=== PATIENT | male | born 2000 | race Caucasian/White ===

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

== ENCOUNTER → 2022-03-29 12:34 | Outpatient (BNVA) | payer OTHER, SELFPAY | PROVIDERS: PCP Nurse Practitioner; Visit Provider Counselor Mental Health | DX: F41.1 Generalized anxiety disorder (principal) | CPT/HCPCS: 90834 ==

== ENCOUNTER 2022-04-19 16:48 | Inpatient (IN) | payer MEDICAID, SELFPAY ==
[2022-04-19 16:58] VITALS: BP 100/55; PULSE 82; RESP 18; TEMP 36.6; O2SAT 97; BMI 18.6
--- NOTE | 2022-04-19 17:00 | ED_ITS ---
HPI - General Adult General: Chief complaint: Psychiatric Symptoms Stated complaint: Psych eval; depression; SI Time Seen by Provider: 04/19/22 16:59 History of Present Illness: HPI: [21]yo patient w/ hx of depression prsenting for severe depression. Patient denies any suicidal ideation but tells me that he has been on medicine compliantly and he is here because his girlfriend gave him an ultimatum to come to the emergency room to get help for his depression. on arrival, the patient is AAOx3 and cooperative with my evaluation. No focal complaints of chest pain, shortness of breath, palpitations, N/V, focal GI/ complaints. Currently denies SI/HI. No complaints of hallucinations. Onset: acute on chronic Duration: ongoing Location: home Severity: severe Associated symptoms: Deny chest pain, dyspnea, nausea, rash, palpitations or vomiting Review of Systems Const: Denies: fever(s) or chills Eyes: Denies: change in vision ENMT: Denies: mouth pain Card: Denies: chest pain or palpitations Resp: Denies: dyspnea or non-productive cough GI: Denies: abdominal pain, nausea, vomiting or diarrhea : Denies: dysuria Musc: Denies: extremity pain Skin/Breast: Denies: rash or new lesions Neuro: Denies: weakness in extremities Psych: Reports: depression Cedrick/Lymph: Denies: easy bruising [facility] ED PFSH: Medical History (Updated 04/19/22 @ 16:59 by Yas Ruiz MD) Psychiatric care Social History Smoking and tobacco status: current every day smoker Physical Exam Const: COMMON NORMALS: alert HENMT: COMMON NORMALS: atraumatic HEAD & SCALP: atraumatic MOUTH: moist mucous membranes not abnormal Eye: COMMON NORMALS: EOMs intact bilaterally and conjunctivae normal CONJUNCTIVA: Yes conjunctivae normal Neck/C-Spine: COMMON NORMALS: full ROM and supple Resp: COMMON NORMALS: normal respiratory effort and clear to auscultation bilaterally AUSCULTATION: clear to auscultation bilaterally Cardio: COMMON NORMALS: regular rate RATE: regular rate GI: COMMON NORMALS: Soft to palpation and non-tender PALPATION: Yes Soft to palpation Extremity: COMMON NORMALS: full ROM Neuro: SENSORIUM/ORIENTATION: Yes alert MOTOR EXAM: No Abnormal motor strength present and Other motor observations present (no focal motor deficits) Psych: COMMON NORMALS: speech normal SPEECH: Yes normal speech MOOD & AFFECT: Yes depressed mood Course Vital Signs: Vital signs: Vital Signs Temperature 98 F 04/19/22 16:58 Pulse Rate 82 04/19/22 16:58 Respiratory Rate 18 04/19/22 16:58 Blood Pressure 100/55 04/19/22 16:58 Pulse Oximetry 97 04/19/22 16:58 MDM - General Adult Medical Decision Making [21]yo patient w/ hx of depression in fluoxetine 10mg daily presenting for worsening depression. No SI. HDS, exam within normal limit Thoughts are linear and organized, and the patient has no AH/VH, or HI. Clinically the patient displays no overt toxidrome; they are well appearing, with low suspicion for toxic ingestion given history and exam. Symptoms unlikely 2/2 anemia, hypothyroidism, infection, or ICH. Workup: CBC, CMP, Lipase, salicylate/tylenol, UDS Lab findings: wnl, +marijuana in the urine [6:30pm] On reassessment, labs and workup wnl. Patient is hemodynamically stable with no acute medical complaints. Case discussed with psychiatric provider Dr. Chambers at [facility] psych inpatient with recommendation for admission Disposition: Psych Lab Data : 04/19/22 17:44 04/19/22 17:44 Laboratory Results WBC 7.9 10^3/uL (4.5-13.0) 04/19/22 17:44 RBC 4.76 10^6/uL (4.1-5.3) 04/19/22 17:44 Hgb 13.9 g/dL (11.7-16.6) 04/19/22 17:44 Hct 41.2 % (42.0-52.0) L 04/19/22 17:44 MCV 86.6 fl (80-94) 04/19/22 17:44 MCH 29.2 pg (28.0-34.0) 04/19/22 17:44 MCHC 33.7 g/dL (30.0-36.0) 04/19/22 17:44 RDW 13.2 % (12.1-15.1) 04/19/22 17:44 Plt Count 176 10^3/cmm (130-400) 04/19/22 17:44 MPV 10.6 fL (7.4-10.4) H 04/19/22 17:44 Neut % (Auto) 50.0 % 04/19/22 17:44 Lymph % (Auto) 29.2 % 04/19/22 17:44 [place] % (Auto) 9.0 % 04/19/22 17:44 Eos % (Auto) 11.1 % 04/19/22 17:44 Baso % (Auto) 0.4 % 04/19/22 17:44 Neut # (Auto) 3.94 10^3/uL (1.8-8.0) 04/19/22 17:44 Lymph # (Auto) 2.3 10^3/uL (1.5-6.5) 04/19/22 17:44 [place] # (Auto) 0.7 10^3/uL (0.2-0.9) 04/19/22 17:44 Eos # (Auto) 0.9 10^3/uL (0.0-0.8) H 04/19/22 17:44 Baso # (Auto) 0.0 10^3/uL (0.0-0.1) 04/19/22 17:44 Nucleated RBC % (auto) 0 % 04/19/22 17:44 Nucleated RBCs # 0.0 /100WBC 04/19/22 17:44 Sodium 139 mmol/L (136-145) 04/19/22 17:44 Potassium 4.1 mmol/L (3.5-5.1) 04/19/22 17:44 Chloride 101 mmol/L (98-107) 04/19/22 17:44 Carbon Dioxide 30 mmol/L (22-29) H 04/19/22 17:44 Anion Gap 12.1 (5-19) 04/19/22 17:44 BUN 11 mg/dL (6-20) 04/19/22 17:44 Creatinine 0.7 mg/dL (0.7-1.2) 04/19/22 17:44 GFR Calculation 145.3 mL/min (90-130) H 04/19/22 17:44 Glucose 108 mg/dL (65-115) 04/19/22 17:44 Calculated Osmolality 288 mOsm/kg (285-295) 04/19/22 17:44 Calcium 9.4 mg/dL (8.5-10.5) 04/19/22 17:44 Total Bilirubin 0.5 mg/dL (0.15-1.2) 04/19/22 17:44 AST 19 U/L (0-40) 04/19/22 17:44 ALT 14 U/L (0-41) 04/19/22 17:44 Alkaline Phosphatase 82 IU/L (40-130) 04/19/22 17:44 Total Protein 7.6 g/dL (6.6-8.7) 04/19/22 17:44 Albumin 4.7 g/dL (3.5-5.2) 04/19/22 17:44 Globulin 2.9 g/dL (1.3-4.6) 04/19/22 17:44 Salicylates < 0.3 mg/dL (3-10) L 04/19/22 17:44 Urine Opiates Screen Negative ng/mL (Negative) 04/19/22 17:44 Acetaminophen < 5.0 ug/mL (10-30) L 04/19/22 17:44 Ur Barbiturates Screen Negative ng/mL (Negative) 04/19/22 17:44 Ur Phencyclidine Scrn Negative ng/mL (Negative) 04/19/22 17:44 Ur Amphetamines Screen Negative ng/mL (Negative) 04/19/22 17:44 U Benzodiazepines Scrn Negative ng/mL (Negative) 04/19/22 17:44 Urine Cocaine Screen Negative ng/mL (Negative) 04/19/22 17:44 U Marijuana (THC) Screen Positive ng/mL (Negative) H 04/19/22 17:44 Ethyl Alcohol < 10 mg/dL (0-10) 04/19/22 17:44 Discharge Plan Discharge Patient Disposition: Admitted As Inpatient Clinical Impression: Depression, Depression with suicidal ideation Condition: Stable Coding Level of Care Code ED Outbound Sales Professional for Alondra Fwd Exam Comprehensive
[2022-04-19 17:56] LABS: Basophils % 0.4 %; Eosinophils # 0.9 10^3/uL (0.0-0.8); Eosinophils % 11.1 %; Hematocrit 41.2 % (42.0-52.0); Hemoglobin 13.9 g/dL (11.7-16.6); Lymphocytes # 2.3 10^3/uL (1.5-6.5); Lymphocytes % 29.2 %; Mean Corpuscular HGB Conc 33.7 g/dL (30.0-36.0); Mean Corpuscular Hemoglobin 29.2 pg (28.0-34.0); Mean Corpuscular Volume 86.6 fl (80-94); Mean Platelet Volume 10.6 fL (7.4-10.4); Monocytes # 0.7 10^3/uL (0.2-0.9); Neutrophils # 3.94 10^3/uL (1.8-8.0); Nucleated Red Blood Cells % 0 %; Platelet Count 176 10^3/cmm (130-400); Red Blood Count 4.76 10^6/uL (4.1-5.3); Red Cell Distribution Width 13.2 % (12.1-15.1); White Blood Count 7.9 10^3/uL (4.5-13.0)
[2022-04-19 18:01] LABS: Amphetamines Screen Urine Negative (Negative); Barbiturates Screen Urine Negative (Negative); Benzodiazepines Screen Urine Negative (Negative); Cocaine Screen Urine Negative (Negative); Opiate Screen Urine Negative (Negative); PCP Screen Urine Negative (Negative); THC Screen Urine Positive (Negative)
[2022-04-19 18:18] LABS: Alanine Aminotransferase 14 U/L (0-41); Albumin Level 4.7 g/dL (3.5-5.2); Alkaline Phosphatase 82 IU/L (40-130); Anion Gap 12.1 (5-19); Aspartate Amino Transferase 19 U/L (0-40); Blood Urea Nitrogen 11 mg/dL (6-20); Calcium 9.4 mg/dL (8.5-10.5); Carbon Dioxide 30 mmol/L (22-29); Chloride 101 mmol/L (98-107); Creatinine Clr Calc Pharmacy 141.5676; Globulin 2.9 g/dL (1.3-4.6); Glomerular Filtration Rate 145.3 mL/min (90-130); Glucose 108 mg/dL (65-115); Osmolality Calculated 288 mOsm/kg (285-295); Potassium 4.1 mmol/L (3.5-5.1); Sodium 139 mmol/L (136-145); Total Bilirubin 0.5 mg/dL (0.15-1.2); Total Protein 7.6 g/dL (6.6-8.7)
[2022-04-19 18:21] LABS: Acetaminophen < 5.0 ug/mL (10-30); Alcohol Level < 10 mg/dL (0-10); Salicylate < 0.3 mg/dL (3-10)
--- NOTE | 2022-04-19 19:04 | PC.NURSE ---
REPORT GIVEN TO BRITANY NO ASSUMED CARE.
[2022-04-19 19:58] VITALS: BP 122/81; PULSE 54; RESP 16; TEMP 36.7; O2SAT 100
[2022-04-19 20:55] VITALS: BP 122/81; PULSE 54; RESP 16; TEMP 36.7; O2SAT 100
[2022-04-19] MEDS: hyDROXYzine 25 mg Capsule 50 MG PO (21:48)
[2022-04-19] MEDS: escitalopram 10 mg Tablet PO (21:48)
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
[2022-04-20 06:00] VITALS: BP 116/73; PULSE 76; RESP 16; TEMP 36.4; O2SAT 98
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
[2022-04-20] MEDS: nicotine 2 mg Gum BUCCAL (09:42)
[2022-04-20 14:00] VITALS: BP 108/58; PULSE 73; RESP 17; TEMP 36.8; O2SAT 99
[2022-04-20] MEDS: escitalopram 10 mg Tablet PO (20:07)
[2022-04-20 20:36] VITALS: BP 123/73; PULSE 110; RESP 16; TEMP 36.3; O2SAT 93
--- NOTE | 2022-04-20 21:12 | PC.NURSE ---
Patients family notified staff they had received calls and texts of threatening nature from patient since being in care, patient asked about cell phone and gave it to staff willingly. Cell phone and picture hanger removed and placed in patients belongings in safe and inventoried in patients chart.
[2022-04-21 06:00] VITALS: BP 120/78; PULSE 86; RESP 14; TEMP 36.5; O2SAT 98
[2022-04-21] MEDS: fluoxetine 20 mg Capsule PO (08:40)
[2022-04-21] MEDS: nicotine 2 mg Gum BUCCAL (08:40)
[2022-04-21] MEDS: OLANZapine 5 mg ODT PO (08:40)
[2022-04-21 14:00] VITALS: BP 129/76; PULSE 106; RESP 20; TEMP 36.6; O2SAT 97
--- NOTE | 2022-04-21 17:28 | W.PM.NPUPNS ---
Subjective NPU Subjective: Patient presents today reporting that he is hoping to discharge. However concerns surrounding his having contraband in the form of his phone that he had been hiding on the unit and texting his girlfriend with concerning statements arose. Family came down with significant affidavits. He had a fairly confrontational interaction with his mother during visiting hours and ultimately agreed to stay but understood that grounds for 96-hour hold exist. He denied any problems with the medication and did not fight having to stay despite initially having resistance. Mental Status Exam MSE Comments: This is an underweight white male with hospital scrubs on with adequate grooming and eye contact. No abnormal movements. Cooperative with exam in mild to moderate distress. Speech was slightly decreased rate and volume. Mood described as upset, affect congruent. Thought process organized, thought content: patient denies suicidal or homicidal ideation, there were no delusions reported or noted, he denied any auditory or visual hallucinations. Attention and concentration were intact and memory appeared unreliable but none were formally tested. He?s alert and oriented times three. Insight and judgment appeared limited and impulse control appeared limited. Vitals/I&O/Wt Last Vital Signs Temp 97.8 F 04/21/22 20:25 Pulse 55 L 04/21/22 20:25 Resp 16 04/21/22 20:25 BP 99/45 04/21/22 20:25 Pulse Ox 98 04/21/22 20:25 Data NPU : 04/19/22 17:44 04/19/22 17:44 A&P Assessment and plan (1) Partner relational problem: Status: Acute (2) Cannabis abuse: Status: Acute (3) PTSD (post-traumatic stress disorder): Status: Acute (4) Depression: Status: Acute (5) Depression with suicidal ideation: Status: Acute Plan This is a 21-year-old white male with a history of childhood trauma and recent partner relational problem with suicidal thoughts who presents open to medication adjustments. 1.? Continue current medication.? Except started Prozac 20 mg p.o. every morning. 2.? Continue every 15 minute checks for safety. 3.? Encourage individual, group and milieu therapies. 4.? Encourage sober living treatment after discharge at the highest level of care to which he is willing to commit. 5. Affidavits provided by family and significant other identified need for continued inpatient care and appropriate referrals Involuntary Hold Information 96 Hour Hold: 96 Hour Involuntary Admission: No Attestations NPU Medical Necessity Statement*: Inpatient hospitalization is medically necessary and the clinically appropriate intervention at this time. We will monitor medication to make changes as indicated. Likely length of stay 2 to 4 days. Coding Level of Care Code Acute Paid Search Marketing Analyst for [employer] Fwd Diagnoses Partner relational problem Z63.0 Cannabis abuse F12.10 PTSD (post-traumatic stress disorder) F43.10 Depression F32.A Depression with suicidal ideation F32.A; R45.851
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
[2022-04-21 20:25] VITALS: BP 99/45; PULSE 55; RESP 16; TEMP 36.6; O2SAT 98
[2022-04-21] MEDS: escitalopram 10 mg Tablet PO (21:02)
[2022-04-22 06:00] VITALS: BP 107/67; PULSE 82; RESP 14; TEMP 36.4; O2SAT 96
[2022-04-22] MEDS: fluoxetine 20 mg Capsule PO (09:06)
--- NOTE | 2022-04-22 12:44 | P.NPUPN_ITS ---
Subjective NPU Subjective: Patient presents today reporting that he wants to leave. Since yesterday he took his girlfriend and her mother off his contact list. He continues to demonstrate little to no insight in regards to the impact of his behaviors as well as the impact of the statements that he made intact. He was very unpleasant with his mom yesterday and continues to point to everyone else's behaviors but his own. He denies any problems with the medication and reports that he is eating and sleeping fine. Mental Status Exam MSE Comments: This is an underweight white male with hospital scrubs on with adequate grooming and eye contact. No abnormal movements. Cooperative with exam in mild distress. Speech was slightly decreased rate and volume. Mood described as not happy, affect congruent. Thought process organized, thought content: patient denies suicidal or homicidal ideation, there were no delusions reported or noted, he denied any auditory or visual hallucinations. Attention and concentration were intact and memory appeared unreliable but none were formally tested. He?s alert and oriented times three. Insight and judgment appeared limited and impulse control appeared limited. Vitals/I&O/Wt Last Vital Signs Temp 97.5 F L 04/22/22 06:00 Pulse 82 04/22/22 06:00 Resp 14 04/22/22 06:00 BP 107/67 04/22/22 06:00 Pulse Ox 96 04/22/22 06:00 Data NPU : 04/19/22 17:44 04/19/22 17:44 A&P Assessment and plan (1) Partner relational problem: Status: Acute (2) Cannabis abuse: Status: Acute (3) PTSD (post-traumatic stress disorder): Status: Acute (4) Depression: Status: Acute (5) Depression with suicidal ideation: Status: Acute Plan This is a 21-year-old white male with a history of childhood trauma and recent partner relational problem with suicidal thoughts who presents open to medicati on adjustments. 1.? Continue current medication.? Except started Prozac 20 mg p.o. every morning. 2.? Continue every 15 minute checks for safety. 3.? Encourage individual, group and milieu therapies. 4.? Encourage sober living treatment after discharge at the highest level of care to which he is willing to commit. 5.? Affidavits provided by family and significant other identified need for continued inpatient care and appropriate referrals. We will consider 90-hour hold if necessary for further observation. Involuntary Hold Information 96 Hour Hold: 96 Hour Involuntary Admission: No Attestations NPU Medical Necessity Statement*: Inpatient hospitalization is medically necessary and the clinically appropriate intervention at this time. We will monitor medication to make changes as indicated.? Likely length of stay 1-3 days. Coding Level of Care Code Acute Director Process for [employer] Fwd Diagnoses Partner relational problem Z63.0 Cannabis abuse F12.10 PTSD (post-traumatic stress disorder) F43.10 Depression F32.A Depression with suicidal ideation F32.A; R45.851
[2022-04-22 14:00] VITALS: BP 105/64; PULSE 69; RESP 17; TEMP 36.8; O2SAT 97
[2022-04-22] MEDS: hyDROXYzine 25 mg Capsule 50 MG PO (18:33)
[2022-04-22 19:35] VITALS: BP 136/89; PULSE 105; RESP 16; TEMP 36.6; O2SAT 96
[2022-04-22] MEDS: escitalopram 10 mg Tablet PO (20:44)
[2022-04-23 06:00] VITALS: BP 103/57; PULSE 102; RESP 16; TEMP 36.6; O2SAT 94
[2022-04-23] MEDS: fluoxetine 20 mg Capsule PO (08:24)
[2022-04-23] MEDS: nicotine 21 mg Patch 1 PATCH TRANSDERMA (09:22)
--- NOTE | 2022-04-23 09:29 | PC.NURSE ---
PATCH ORIGINAL NICOTINE PATCH PLACED WAS NOT ADHERING TO PT SKIN, THAT PATCH WAS WASTED AND NEW PATCH APPLIED [id number].
[2022-04-23] MEDS: OLANZapine 5 mg ODT PO (10:17)
[2022-04-23 13:40] VITALS: BP 103/66; PULSE 101; RESP 17; TEMP 36.8; O2SAT 97
--- NOTE | 2022-04-23 17:59 | W.PM.NPUPNS ---
Subjective NPU Subjective: Patient presents today reporting that he is doing okay. He acknowledges that today was once again at this time that he needs to learn to manage his temper. Having moments where he was pushing the nurses to find out that he could discharge AGAINST MEDICAL ADVICE even though he knows what we have discussed. He reported that there were reasons why he was frustrated but was able to agree that those are not mitigating circumstances but just issues that he maintains as significant. We discussed the plan to speak with his mother in the morning after he is off work about how she feels he doing and began discussing plans for discharge. Mental Status Exam MSE Comments: This is an underweight white male with hospital scrubs on with adequate grooming and eye contact. No abnormal movements. Cooperative with exam in mild distress. Speech was slightly decreased rate and volume. Mood described as a little better, affect congruent. Thought process organized, thought content: patient denies suicidal or homicidal ideation, there were no delusions reported or noted, he denied any auditory or visual hallucinations. Attention and concentration were intact and memory appeared unreliable but none were formally tested. He?s alert and oriented times three. Insight and judgment appeared limited and impulse control appeared limited. Vitals/I&O/Wt Last Vital Signs Temp 97.8 F 04/23/22 20:20 Pulse 87 04/23/22 20:20 Resp 16 04/23/22 20:20 BP 110/71 04/23/22 20:20 Pulse Ox 96 04/23/22 20:20 Weight last 48 hrs Weight 58.627 kg Data NPU : 04/19/22 17:44 04/19/22 17:44 A&P Assessment and plan (1) Partner relational problem: Status: Acute (2) Cannabis abuse: Status: Acute (3) PTSD (post-traumatic stress disorder): Status: Acute (4) Depression: Status: Acute (5) Depression with suicidal ideation: Status: Acute Plan This is a 21-year-old white male with a history of childhood trauma and recent partner relational problem with suicidal thoughts who presents open to medication adjustments. 1.? Continue current medication.? Except started Prozac 20 mg p.o. every morning. 2.? Continue every 15 minute checks for safety. 3.? Encourage individual, group and milieu therapies. 4.? Encourage sober living treatment after discharge at the highest level of care to which he is willing to commit. 5.? Affidavits provided by family and significant other identified need for continued inpatient care and appropriate referrals.? We will consider 96-hour hold if necessary for further observation. Involuntary Hold Information 96 Hour Hold: 96 Hour Involuntary Admission: No Attestations NPU Medical Necessity Statement*: Inpatient hospitalization is medically necessary and the clinically appropriate intervention at this time. We will monitor medication to make changes as indicated.? Likely length of stay 1-3 days. Coding Level of Care Code Acute Slubber Frame Changer for g Fwd Diagnoses Partner relational problem Z63.0 Cannabis abuse F12.10 PTSD (post-traumatic stress disorder) F43.10 Depression F32.A Depression with suicidal ideation F32.A; R45.852
[2022-04-23 20:20] VITALS: BP 110/71; PULSE 87; RESP 16; TEMP 36.6; O2SAT 96
[2022-04-23] MEDS: escitalopram 10 mg Tablet PO (20:32)
[2022-04-24 05:27] VITALS: BMI 18.5
[2022-04-24 06:00] VITALS: BP 122/78; PULSE 71; RESP 16; TEMP 36.7; O2SAT 98
[2022-04-24] MEDS: OLANZapine 5 mg ODT PO (08:26)
[2022-04-24] MEDS: fluoxetine 20 mg Capsule PO (08:26)
[2022-04-24 14:00] VITALS: BP 102/69; PULSE 82; RESP 20; TEMP 36.3; O2SAT 96
--- NOTE | 2022-04-24 14:22 | W.PM.NPUPNS ---
Subjective NPU Subjective: Patient today continuing to be antsy about discharge but certainly doing better and managing his temper. We reached out to mom and she said secondary to his aggressive behavior during the hospitalization and during her visits she has not okay with him coming home but she will continue to be supportive and make sure that he gets a ride to wherever he needs to be. At this point he reports leaning towards going to his sisters. We discussed monitoring him overnight with likely plan for discharge if there are no concerns in the morning. Mental Status Exam MSE Comments: This is an underweight white male with hospital scrubs on with adequate grooming and eye contact. No abnormal movements. Cooperative with exam in no acute distress. Speech was slightly decreased rate and volume. Mood described as better, affect congruent but still somewhat subdued. Thought process organized, thought content: patient denies suicidal or homicidal ideation, there were no delusions reported or noted, he denied any auditory or visual hallucinations. Attention and concentration were intact and memory appeared unreliable but none were formally tested. He?s alert and oriented times three. Insight and judgment appeared limited and impulse control appeared limited. Vitals/I&O/Wt Last Vital Signs Temp 98.0 F 04/24/22 06:00 Pulse 71 04/24/22 06:00 Resp 16 04/24/22 06:00 BP 122/78 04/24/22 06:00 Pulse Ox 98 04/24/22 06:00 Weight last 48 hrs Weight 58.627 kg Data NPU : 04/19/22 17:44 04/19/22 17:44 A&P Assessment and plan (1) Partner relational problem: Status: Acute (2) Cannabis abuse: Status: Acute (3) PTSD (post-traumatic stress disorder): Status: Acute (4) Depression: Status: Acute (5) Depression with suicidal ideation: Status: Acute Plan This is a 21-year-old white male with a history of childhood trauma and recent partner relational problem with suicidal thoughts who presents open to medication adjustments. 1.? Continue current medication.? Except started Prozac 20 mg p.o. every morning. 2.? Continue every 15 minute checks for safety. 3.? Encourage individual, group and milieu therapies. 4.? Encourage sober living treatment after discharge at the highest level of care to which he is willing to commit. 5.? Social work team will be in in the morning. We will get appropriate outpatient referrals and likely discharge after. Involuntary Hold Information 96 Hour Hold: 96 Hour Involuntary Admission: No Attestations NPU Medical Necessity Statement*: Inpatient hospitalization is medically necessary and the clinically appropriate intervention at this time. We will monitor medication to make changes as indicated.? Likely length of stay 1-2 days. 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
[2022-04-24 20:07] VITALS: BP 100/51; PULSE 67; RESP 17; TEMP 36.7; O2SAT 93
[2022-04-24] MEDS: nicotine 2 mg Gum BUCCAL (20:18)
[2022-04-24] MEDS: escitalopram 10 mg Tablet PO (20:27)
[2022-04-24] MEDS: trazodone 50 mg Tablet PO (20:29)
[2022-04-25 06:00] VITALS: BP 105/56; PULSE 116; RESP 20; TEMP 36.5; O2SAT 94
[2022-04-25] MEDS: fluoxetine 20 mg Capsule PO (08:46)
[2022-04-25] MEDS: nicotine 21 mg Patch 1 PATCH TRANSDERMA (09:11)
[2022-04-25] MEDS: OLANZapine 5 mg ODT PO (09:12)
--- NOTE | 2022-04-25 09:12 | PC.NURSE ---
Zydis 5 mg sl given for increased anxiety and agitation.
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
--- NOTE | 2022-04-25 12:53 | PC.RESP ---
Therapist was called for an inhaler to give to pt. Therapist went down and pulled med to give patient and pt stated that he didnt need it anymore.
[2022-04-25 12:54] VITALS: BP 105/56; PULSE 116; RESP 20; TEMP 36.5; O2SAT 94
== END 2022-04-25 13:20 | disposition home or self-care (01) | DRG 881 ==
LOC: ER 18:34 → NP 19:15
PROVIDERS: Physician Assistant; Admitting Provider Psychiatry & Neurology Psychiatry; Emergency Provider Emergency Medicine; PCP Nurse Practitioner; Visit Provider Psychiatry & Neurology Psychiatry
DX: F32.A Depression, unspecified (principal); R45.851 Suicidal ideations; F17.200 Nicotine dependence, unspecified, uncomplicated; F43.10 Post-traumatic stress disorder, unspecified; F12.10 Cannabis abuse, uncomplicated; Z63.0 Problems in relationship with spouse or partner
CPT/HCPCS: 80053; 80306; 80307; 85025; 90832; 97150; 97165; 99285; J3535

== ENCOUNTER 2024-01-16 17:02 | Emergency (ER) | payer MEDICAID, SELFPAY ==
[2024-01-16 17:15] VITALS: BP 145/88; PULSE 85; RESP 16; TEMP 36.7; O2SAT 95
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
== END 2024-01-16 18:42 | disposition home or self-care (01) ==
PROVIDERS: Emergency Provider Nurse Practitioner; PCP Nurse Practitioner
DX: H10.33 Unspecified acute conjunctivitis, bilateral (principal); Z72.0 Tobacco use
CPT/HCPCS: 99283

== ENCOUNTER 2024-06-10 21:51 | Emergency (ER) | payer MEDICAID, SELFPAY ==
[2024-06-10 21:58] VITALS: BP 119/80; PULSE 63; RESP 16; TEMP 36.9; O2SAT 99; BMI 18.3
[2024-06-10 22:03] VITALS: BP 117/73; PULSE 65; RESP 16; O2SAT 100
[2024-06-10 23:18] LABS: Add Urine Microscopic? NO
[2024-06-10 23:19] LABS: Charge for UA Resulting for Rev
--- NOTE | 2024-06-10 23:34 | CTR_ITS ---
PROCEDURE INFORMATION: Exam: CT Head Without Contrast Exam date and time: 06/10/2024 11:44 PM Age: 23 years old Clinical indication: Other: Withdrawals; Additional info: Head inj TECHNIQUE: Imaging protocol: Computed tomography of the head without contrast. Radiation optimization: All CT scans at this facility use at least one of these dose optimization techniques: automated exposure control; mA and/or kV adjustment per patient size (includes targeted exams where dose is matched to clinical indication); or iterative reconstruction. COMPARISON: CT cervical spin wo con* [id number] 06/10/2024 11:44 PM RADIATION DOSE METRICS: Total DLP (mGy-cm): 1066 FINDINGS: Brain: No intracranial hemorrhage. No edema or mass effect. No significant deep white matter abnormality. Cerebral ventricles: Normal ventricles. Paranasal sinuses: The paranasal sinuses are clear. Mastoid air cells: The mastoid air cells are clear. Bones: No acute osseous abnormalities are seen. Soft tissues: The soft tissues are within normal limits. CT/CT head wo con* [id number] IMPRESSION: No acute intracranial pathology.
--- NOTE | 2024-06-10 23:34 | CTR_ITS ---
PROCEDURE INFORMATION: Exam: CT Cervical Spine Without Contrast Exam date and time: 06/10/2024 11:44 PM Age: 23 years old Clinical indication: Neck pain; Additional info: Head inj TECHNIQUE: Imaging protocol: Computed tomography of the cervical spine without contrast. Radiation optimization: All CT scans at this facility use at least one of these dose optimization techniques: automated exposure control; mA and/or kV adjustment per patient size (includes targeted exams where dose is matched to clinical indication); or iterative reconstruction. COMPARISON: CT head wo con* [id number] 06/10/2024 11:44 PM RADIATION DOSE METRICS: Total DLP (mGy-cm): 398.9 FINDINGS: Limitations: Paucity of fat in the neck limiting evaluation of the soft tissues. Bones: Normal alignment. No significant degenerative change. No evidence of acute fracture. Lungs: Lung apices are normal. Soft tissues: The soft tissues are within normal limits. CT/CT cervical spin wo con* [id number] IMPRESSION: No evidence of acute fracture.
[2024-06-10 23:35] LABS: Bilirubin Urine Neg (Negative); Blood Urine Neg (Negative); Glucose Urine UA Norm (Normal); Ketones Urine Negative (Negative); Leukocyte Esterase Urine Negative (Negative); Nitrate Urine Negative (Negative); Protein Urine Neg (Negative); Urine Appearance Clear (CLEAR); Urine Color Yellow (Yellow); Urobilinogen Urine Norm (Negative); pH Urine 8 (5-7)
--- NOTE | 2024-06-10 23:35 | ECG_ITS ---
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 Measurements Intervals Vantage Rate: 56 P: 51 NH: 162 QRS: 71 QRSD: 94 T: 65 QT: 479 QTc: 464 Interpretive Statements SINUS BRADYCARDIA PROLONGED QT INTERVAL Compared to ECG 07/29/2020 21:09:28 Prolonged QT interval now present Sinus tachycardia no longer present Electronically Signed On 06-11-2024 21:34:55 CDT by Israel Castro M.D. [email or web address]
[2024-06-10 23:37] LABS: Amphetamines Screen Urine Positive (Negative); Barbiturates Screen Urine Negative (Negative); Benzodiazepines Screen Urine Negative (Negative); Cocaine Screen Urine Negative (Negative); Opiate Screen Urine Negative (Negative); PCP Screen Urine Negative (Negative); THC Screen Urine Positive (Negative)
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
[2024-06-10] MEDS: LORazepam 2 mg/mL INJ 1 mL 1 MG IVP (23:55)
[2024-06-11 00:03] VITALS: BP 129/79; PULSE 63; O2SAT 100
[2024-06-11 01:15] LABS: Basophils % 0.3 %; Eosinophils # 0.4 10^3/uL (0.0-0.8); Eosinophils % 4.7 %; Hematocrit 35.6 % (37-53); Lymphocytes # 1.9 10^3/uL (0.8-4.8); Lymphocytes % 24.1 %; Mean Corpuscular Hemoglobin 28.4 pg (27-33); Mean Corpuscular Volume 83.6 fl (82-101); Mean Platelet Volume 8.7 fL (7.4-10.4); Monocytes # 0.8 10^3/uL (0.2-0.9); Monocytes % 9.7 %; Neutrophils # 4.84 10^3/uL (1.8-7.7); Neutrophils % 60.8 %; Nucleated Red Blood Cells % 0 %; Platelet Count 254 10^3/cmm (157-399); Red Blood Count 4.26 10^6/uL (3.85-5.65); Red Cell Distribution Width 13.4 % (12.1-15.1); White Blood Count 7.94 10^3/uL (3.29-11.43)
[2024-06-11 01:34] LABS: Alanine Aminotransferase 24 U/L (0-41); Albumin Level 3.4 g/dL (3.5-5.2); Alkaline Phosphatase 88 U/L (40-130); Anion Gap 13.4 (5-19); Aspartate Amino Transferase 25 U/L (0-40); Blood Urea Nitrogen 11 mg/dL (6-20); Calcium 8.6 mg/dL (8.5-10.5); Carbon Dioxide 27 mmol/L (22-29); Chloride 99 mmol/L (98-107); Creatine Phosphokinase 200 U/L (39-308); Creatinine Clr Calc Pharmacy 202.4157; Globulin 3.3 g/dL (1.3-4.6); Glomerular Filtration Rate 209.9 mL/min (90-130); Glucose 96 mg/dL (65-115); Osmolality Calculated 281 mOsm/kg (285-295); Potassium 3.4 mmol/L (3.5-5.1); Sodium 136 mmol/L (136-145); Total Bilirubin 0.3 mg/dL (0.15-1.2); Total Protein 6.7 g/dL (6.6-8.7)
[2024-06-11 01:54] VITALS: BP 133/96; PULSE 69; RESP 18; O2SAT 96
== END 2024-06-11 01:59 | disposition home or self-care (01) ==
PROVIDERS: Emergency Provider Physician Assistant; PCP Nurse Practitioner
DX: F15.90 Other stimulant use, unspecified, uncomplicated (principal); F12.90 Cannabis use, unspecified, uncomplicated; Z72.0 Tobacco use
CPT/HCPCS: 36415; 70450; 72125; 80053; 80306; 81003; 82550; 83735; 85025; 93005; 96374; 99285; J2060